=== PATIENT | female | born 1965 | race Caucasian/White ===

== ENCOUNTER → 2017-12-03 16:48 | Outpatient (CLI) | payer BC, SELFPAY ==
[2017-12-03 17:09] LABS: HGB 14.1 g/dL (12.0-15.5)
== END ==
PROVIDERS: PCP Internal Medicine; Visit Provider Obstetrics & Gynecology
DX: N95.0 Postmenopausal bleeding (principal); Z01.812 Encounter for preprocedural laboratory examination
CPT/HCPCS: 36415; 86850; 86900; 86901; 85014; 85018

== ENCOUNTER 2018-04-25 12:49 | Outpatient (CLI) | payer BC, SELFPAY ==
--- NOTE | 2018-04-25 13:00 | DI.RAD_ITS ---
SYMPTOM/DIAGNOSIS: COUGH, ABNL CXR, CHEST RIGHTNESS R05, R93.89, CP R07.89 PA AND LATERAL CHEST: The heart is normal in size. The lungs are clear. The mediastinal structures and pleura appear intact. CONCLUSION: Normal chest.
== END 2018-04-25 13:09 ==
PROVIDERS: PCP Internal Medicine; Visit Provider Nurse Practitioner Adult Health
DX: R05 Cough (principal); R07.89 Other chest pain; R93.89 Abnormal findings on diagnostic imaging of other specified body structures
CPT/HCPCS: 71046

== ENCOUNTER 2018-08-12 00:17 | Outpatient (CLI) | payer BC, SELFPAY ==
--- NOTE | 2018-08-12 11:51 | DI.MAMMO_ITS ---
SYMPTOMS/DIAGNOSIS: SCREENING, Z12.31 MAMMOGRAMS: Mammograms were interpreted according to the usual protocol including computer analysis with CAD system, tomosynthesis and C view imaging. The breast tissue is heterogeneously radiodense, which somewhat limits the sensitivity of the examination. There is no dominant mass. There are no suspicious calcifications and there has been no significant interval change when compared with prior images. SUMMARY: No evidence of malignancy, category 1. Yearly screening mammography is recommended. Breast density category C. SA ASSESSMENT OF FINDINGS: Negative. Category 1. Patient will receive a letter notifying them of these results. Bi-RADS category C. The breasts are heterogeneously dense, which may obscure small masses.
== END 2018-08-12 00:37 ==
PROVIDERS: PCP Internal Medicine; Visit Provider Nurse Practitioner Family
DX: Z12.31 Encounter for screening mammogram for malignant neoplasm of breast (principal)
CPT/HCPCS: 77063; 77067

== ENCOUNTER 2019-07-06 11:30 | Outpatient (REF) | payer BC, SELFPAY ==
--- NOTE | 2019-07-06 10:00 | PAPFT_PTH ---
PATIENT: Lyric Yao LOC: [facility] U#:[id number] AGE/SX: 54/F ROOM: RE07/06/[address]: KAN Cuevas : 1965 BED: DIS: 07/06/2019 SPEC #: [id number] RECD: 07/06/19 12:51 STATUS: JENNIFER REQ #: [id number] RILEY: 07/06/19 10:[address]: Latonya Romero DEPT: [facility] Cytology RECD BY: Poonam Rm ENTERED: 07/06/19 12:51 SP TYPE: PAPFT OTHR DR: Marcia Christopher MD Tissues: 1 - CX/ENDOCX FOR PAP SMEARS Procedures: PAP THIN PREP/UVM Screening HPV DNA PROBE Comments: [id number]
== END 2019-07-06 11:50 ==
LOC: LBN 11:30
PROVIDERS: PCP Internal Medicine; Visit Provider Nurse Practitioner Family
DX: Z12.4 Encounter for screening for malignant neoplasm of cervix (principal); Z11.51 Encounter for screening for human papillomavirus (HPV)
CPT/HCPCS: 88142; 87624

== ENCOUNTER 2020-07-04 14:38 | Outpatient (CLI) | payer BC, SELFPAY ==
--- NOTE | 2020-07-04 14:30 | RT.EKG_ITS ---
APPROVED REPORT Exam: Resting ECG Patient Location: O HR:75 bpm ECG Measurements Heart Rate 75 AXIS LA 144 P 39 QRSd 84 QRS 15 QT 369 T 36 QTc 414 Conclusion Sinus rhythm...normal P axis, V-rate 60- 99 Probable left atrial enlargement...P >50mS, <-0.10mV V1
== END 2020-07-04 14:39 | disposition home or self-care (01) ==
LOC: DI.KIM 14:38
PROVIDERS: PCP Internal Medicine; Visit Provider Nurse Practitioner
DX: R12 Heartburn (principal); R14.2 Eructation
CPT/HCPCS: 93010

== ENCOUNTER 2020-07-11 00:40 | Outpatient (CLI) | payer BC, SELFPAY ==
--- NOTE | 2020-07-11 06:30 | DI.US_ITS ---
EXAM: US ABDOMEN CLINICAL HISTORY: ruq pain after eating ice cream,BELCHING,LOOSE STOOLS,R10.11,R14.2 TECHNIQUE: Ultrasound of complete upper abdomen performed using standard protocol. COMPARISON: US PELVIS TRANSVAG from 10/25/2017 FINDINGS: There is no ascites evident. LIVER: There are no hepatic lesions evident nor obvious dilatation of intrahepatic ducts. GALLBLADDER/BILIARY: Gallbladder is contracted and contains multiple echogenic calculi. The common hepatic duct isnot dilated, measuring 2-3mm at the level of calin hepatis. PANCREAS: There is no evidence of pancreatic mass nor dilatation of the pancreatic duct. SPLEEN: The spleen is not enlarged and there are no intrasplenic lesions evident. KIDNEYS:Kidneys exhibit normal size with no evidence of solid mass, calculus, nor hydronephrosis. No cortical cysts evident. ABDOMINAL AORTA: There is no evidence of abdominal aortic aneurysm. IVC: Normal diameter where visualized. IMPRESSION: 1. Cholelithiasis. Multiple gallstones fill the gallbladder lumen in the gallbladder appears contra cted. Gallbladder wall is slightly thickened. Common hepatic duct is not dilated 2. No other significant ultrasound findings in the upper abdomen. 3. There is no ascites. DATA REPOSITORY:
== END 2020-07-11 01:00 ==
PROVIDERS: PCP Internal Medicine; Visit Provider Nurse Practitioner
DX: K80.20 Calculus of gallbladder without cholecystitis without obstruction (principal); R14.2 Eructation; R19.5 Other fecal abnormalities
CPT/HCPCS: 76700

== ENCOUNTER 2020-07-20 01:23 | Outpatient (CLI) | payer BC, SELFPAY ==
--- NOTE | 2020-07-20 08:00 | DI.MAMMO_ITS ---
EXAM: MAMMO SCREENING CLINICAL HISTORY: screening,Z12.39. TECHNIQUE: Bilateral full field digital CC and MLO mammographic images were obtained with 3D tomosyn thesis and utilizing computer aided detection (CAD). COMPARISON: Prior mammograms dating back to 2013, the most recent being July 2018. FINDINGS: Fibroglandular tissue is again noted be moderately dense, this decreasing the sensitivity of the mamm ogram for finding hidden underlying lesions. There are no new obvious spiculated masses nor malignant appearing microcalcification groups. There is no significant architectural distortion nor skin thickening-retraction. IMPRESSION: Dense bilateral fibroglandular tissue. No obvious radiographic evidence of malignancy nor significan t change compared to prior studies listed above. BI-RADS Category 1 - Negative Breast Density - Category C - Heterogeneously dense Breast density Category C or D implies that the patient has dense breast tissue. Dense breast tissue can make it harder to find cancer on a mammogram. Dense breast tissue is also associated with an incr eased risk of breast cancer. This information about the result of the mammogram report was provided to the patient to raise their awareness. Use this report when you speak with the patient about their risks for breast cancer, which includes their family history. At that time, you may recommend additional screening tests (Ultrasoun d or MRI) as these tests may add significant information. A negative radiographic report should not delay biopsy if a dominant or clinically suspicious mass is present. Up to ten percent of cancers are not identified on mammography. A negative report may reinforce clinical impression. Adenosis and dense breasts may obscure an underlying neoplasm. False positive reports average 6 to 10%. Patient will receive a letter notifying them of these results.
== END 2020-07-20 01:43 ==
PROVIDERS: PCP Internal Medicine; Visit Provider Nurse Practitioner Family
DX: Z12.31 Encounter for screening mammogram for malignant neoplasm of breast (principal)
CPT/HCPCS: 77063; 77067

== ENCOUNTER 2020-07-25 03:24 | Outpatient (CLI) | payer BC, SELFPAY ==
[2020-07-25 10:18] LABS: Source Nasal/Nares
[2020-07-25 13:59] LABS: COVID-19 PCR Negative (Negative)
== END 2020-07-25 03:25 | disposition home or self-care (01) ==
LOC: LBO 03:24
PROVIDERS: PCP Internal Medicine; Visit Provider Surgery
DX: Z20.822 Contact with and (suspected) exposure to COVID-19 (principal)
CPT/HCPCS: 87635

== ENCOUNTER 2020-07-27 07:48 | Day surgery (SDC) | payer BC, SELFPAY ==
--- NOTE | 2020-07-27 06:37 | ROE_ITS ---
Date of service: 07/27/20 Time of Service: 11:30 Operative Note Operative Note DATE OF PROCEDURE: 07/27/20 PRE-OP DIAGNOSIS: Biliary Cholic POST-OP DIAGNOSIS: same PROCEDURE: Laparoscopic Cholecystectomy SURGEON: Dayami Dumont PHOTOGRAPHER APPRENTICE: Marichuy Nair ANESTHESIA TYPE: General LMA/ETT (ASA 2/ Agnes Lopez CRNA) Refer to Anesthesia Record ESTIMATED BLOOD LOSS: 50 PATHOLOGY: other (Gallbladder and contents) COMPLICATIONS: None Patient was transported to: PACU Patient's condition: stable Indications: Mrs Yao is a pleasant 55-year-old female who has biliary colic. Ultrasound showed multiple stones as well as slight thickening of the gallbladder wall. It also sounds like she has got some heartburn for which she is now taking omeprazole 40 mg daily. 30 minutes were spent reviewing surgery using a pamphlet with pictures. We reviewed the anatomy as well as the pathology. We went over risks benefits and complications. Patient wishes to proceed with laparoscopic cholecystectomy. Risks, benefits, complications were reviewed with the patient in the office. Complications include but are not limited to bleeding, infection, injury to stomach, small bowel and large bowel, injury to the pancreas, injury to the common bile duct necessitating drainage and referral to tertiary center for repair, bile leak, adverse reactions to the medications, complications of intubation including a sore throat or injury to the uvula, [place], stroke and even . Questions were entertained and answered to her satisfaction and she wished to proceed. No guarantees were given or implied. COVID-19 testing explained to the patient. Reason for test reviewed. Quarantine per state requirements reviewed with patient. Patient understands and agrees to testing. Proceed with laparoscopic cholecystectomy, possible cholangiogram, possible open Findings: dilated Gallbladder with stones an minimal adhesions Procedure Description: After informed consent was obtained the patient was taken to the PACU and anesthesia performed a erector spine block for postoperative comfort. Once the block was in place the patient was brought to the operating room, placed in a supine position and monitors were applied. SCDs were applied to her lower extremities and she was placed under general anesthesia and intubated without difficulty. Her abdomen was then prepped and draped in a sterile fashion using ChloraPrep. At this point a timeout was done and the patient's name, date of , procedure type, allergies to medications, metal in her body, antibiotic and DVT prophylaxis, and fire risk was assessed. At this point half percent Marcaine with epi was injected just above the umbilicus into the dermis and subcutaneous tissue. A 5 mm incision was made with an 11 blade. The skin next to the incision was grasped with penetrating towel clamps and while pulling up on the skin a 5 mm port was placed under direct visualization. The abdomen was insuflated and then 3 more ports were placed. A 12 mm port was placed in the subxiphoid area and two 5 mm ports were placed in the right upper quadrant. The liver was inspected and was normal. The patient's bed was then turned to the left and her head was brought up. The gallbladder was grasped at the body and pushed towards the right shoulder, this allowed me to visualize the neck of the gallbladder. The neck was grasped and pulled towards the right flank and down allowing me to visualize the lymph node. Using a [place] dissector with cautery the lymph node was gently dissected away from the tissues and the fatty tissue was also dissected away. The cystic duct was identified it was normal in size. The duct was dissected 360 degrees using the [place] dissector in order for me to visualize its entrance into the gallbladder. Liver was noted behind it. There were no other structures right behind. Critical view was achieved. 3 clips were placed one proximal and 2 distal and the cystic duct was cut. The cystic artery was then identified and dissected 360 degrees. It was located just medial to the cystic duct. It was visualized going into the gallbladder. Once dissected 3 more clips were placed one proximal and 2 distal and the artery was cut. Using the hook dissector the gallbladder was then dissected away from the liver bed and placed into an Endo Catch bag and pulled through the 12 mm port site. The 12 mm port was placed back into the abdomen under direct visualization. The liver bed was inspected no bleeding was noted. At this point the rest of the local anesthetic mixture was injected above the liver to help with postoperative right shoulder pain. The 12 mm and the 2 right upper quadrant ports were removed under direct visualization and no bleeding was noted from the fascia. The abdomen was deflated completely and lastly the umbilical port was removed. The skin was cleaned. The fascia of the 12 mm incision was closed with 0 vicryl figure of eight suture. The dermis of all 4 incisions was the closed with a subcuticular running stitch with 4-0 Vicryl. The skin was dried. Mastasol and steristrips were applied to all 4 incisions and covered with 2x2 and secured with tegaderms. Needle and sponge counts were correct at the end of the case. At this point the patient was woken up, extubated and taken back to recovery in stable condition. There were no immediate complications.
--- NOTE | 2020-07-27 06:39 | PDOC.DSDIS_ITS ---
Discharge Plan Disposition Patient Disposition: HOME Condition: Good Discharge Details Reason For Visit: Biliary Cholic Attending Provider: Dayami Dumont Primary Care Provider: Marcia Christopher Home Meds and New Rx's Prescriptions: New oxycodone 5 mg tablet 5 mg PO Q6H PRNQty: 14 RF: 0 Continued omeprazole 40 mg capsule,delayed release(DR/EC) 40 mg PO DAILY Qty: 90 RF: 0 Refresh Classic (PF) 1 EACH dropperette 1 ea Ophthalmic DAILY RF: 0 Refresh Lacri-Lube 3.5 GM ointment 3.5 gm Ophthalmic HS RF: 0 multivitamin [Daily Multiple] 1 EACH tablet 1 ea PO DAILY RF: 0 Discharge Instructions Instructions: Laparoscopic Cholecystectomy (DC) Additional Instructions: Activity at Home after surgery: 1. Make sure you walk outside at least 4 times per day 2. You should be able to climb a flight of stairs 3. No driving while in pain or taking pain medications 4. No strenuous activity or heavy lifting for 2 weeks (laparoscopic surgery) or 4 weeks (open surgery) Diet, Nutrition, & wound healin. Avoid alcohol until after you are recovered from your surgery 2. Make sure to eat plenty of lean protein (meat, fish, eggs, cottage cheese, beans) 3. Eat a variety of fruits and vegetables. Eat plenty of high fiber foods to avoid constipation. 4. Drink plenty of liquids to stay hydrated and avoid constipation Pain Medications: 1. Tylenol 650mg every 6 hours as needed and Ibuprofen 600 mg every 6 hours as needed. You may alternate between the 2 medications every 3 hours 2. If a narcotic has been prescribed take as directed only for br eakthrough pain For Constipation: 1. Take Milk of Magnesia or MiraLax as needed for constipation Other: 1. You may shower daily. Do not scrub the incisions 2. Do not soak the incisions for 1 week 3. You may alternate ice and heat as needed for pain and swelling Wound Care: 1. Keep the incisions clean and dry Please call our office if you develop: 1. Fevers >101.5 2. Nausea or Vomiting 3. Worsening pain 4. Redness and thick discharge from the wounds If after hours please call the Hospital at and ask to speak to the on-call surgeon Referrals: Marichuy Nair PA [[employer]] - 08/11/20 10:30 am Activity:: No lifting >20 lb x 2 weeks Shower/Bathe:: 24 hours Diet:: low fat for 2 weeks Discharge Orders Discharge Orders: Discharge Order (Routine); Ordered 07/27/20 Ordered By: Dayami Dumont
[2020-07-27 08:03] VITALS: BP 125/74; PULSE 88; RESP 16; TEMP 36.4; O2SAT 97
[2020-07-27] MEDS: Lactated Ringers 1,000 ML 80 ML IV (08:22)
[2020-07-27] MEDS: AMPICILLIN/SULBACTAM 3 GM in Normal Saline 100 ML IVPB (11:25)
[2020-07-27] MEDS: Lidocaine 1% Multi-Dose 50 ML VIAL (11:28)
--- NOTE | 2020-07-27 11:50 | GB_PTH ---
PATIENT: Lyric Yao LOC: [facility] U#:[id number] AGE/SX: 55/F ROOM: RE07/27/[address]: Dayami Dumont MD : 1965 BED: DIS: 07/27/2020 SPEC #: [id number] RECD: 07/27/20 12:53 STATUS: JENNIFER RE #: [id number] RILEY: 07/27/20 11:[address]: Dayami Dumont DEPT: Surgical Specimen RECD BY: Poonam Rm ENTERED: 07/27/20 12:54 SP TYPE: GB OTHR DR: Marcia Christopher MD Tissues: 1 - GALLBLADDER Procedures: GROSS AND MICRO LEVEL 3 Comments: [id number]
[2020-07-27 12:15] VITALS: BP 138/89; PULSE 79; RESP 15; TEMP 36.2; O2SAT 97
[2020-07-27 12:20] VITALS: BP 143/76; PULSE 87; RESP 15; TEMP 36.2; O2SAT 96
[2020-07-27 12:25] VITALS: BP 136/76; PULSE 78; RESP 16; TEMP 36.2; O2SAT 96
[2020-07-27 12:40] VITALS: BP 128/78; PULSE 73; RESP 16; TEMP 36.2; O2SAT 97
[2020-07-27 13:35] VITALS: BP 112/73; PULSE 74; RESP 18; TEMP 36.4; O2SAT 94
== END 2020-07-27 14:18 | disposition home or self-care (01) ==
LOC: SUR 07:48
PROVIDERS: PCP Internal Medicine; Visit Provider Surgery
PROC: 0FT44ZZ Resection of Gallbladder, Percutaneous Endoscopic Approach (ICD-10-PCS; CPT 47562; principal; 2020-07-27 09:30)
DX: K80.10 Calculus of gallbladder with chronic cholecystitis without obstruction (principal)
CPT/HCPCS: 47562; 88304; J0295; J1100; J1885; J2001; J2405; J2704; J3010

== ENCOUNTER 2021-04-18 09:09 | Emergency (ER) | payer BC, SELFPAY ==
[2021-04-18] VITALS (38 sets, daily range): BP systolic 121–145; BP diastolic 75–86; PULSE 85–105; RESP 16–28; TEMP 36.7–37.7; O2SAT 91–94
--- NOTE | 2021-04-18 09:15 | RT.EKG_ITS ---
APPROVED REPORT Exam: Resting ECG Reason for Exam: sob Patient Location: E HR:90 bpm ECG Measurements Heart Rate 90 AXIS CA 135 P 32 QRSd 75 QRS 13 QT 352 T 25 QTc 432 Conclusion Sinus rhythm...normal P axis, V-rate 60- 99 Probable left atrial enlargement...P >50mS, <-0.10mV V1
--- NOTE | 2021-04-18 09:43 | W.ED.GENAD ---
Discharge Plan Disposition Patient Disposition: HOME Condition: Improving Discharge Details Clinical Impression: COVID-19 Primary Care Provider: Marcia Christopher ED Provider: Sunil Elias Home Meds and New Rx's Prescriptions: New ondansetron HCl [Zofran] 4 mg tablet 4 mg PO Q8H PRNQty: 10 RF: 0 Continued Systane Complete 0.6 % drops 1 drp ophthalmic (eye) DAILY PRNRF: 0 Refresh Lacri-Lube 3.5 GM ointment 3.5 gm Ophthalmic HS RF: 0 multivitamin [Daily Multiple] 1 EACH tablet 1 ea PO DAILY RF: 0 Discharge Instructions Instructions: COVID-19 (Coronavirus Disease 2019) (ED) Additional Instructions: Zofran as directed. [id number] medications as directed for symptomatic control. Plenty of fluids to avoid dehydration. As we discussed you should be quarantining for at least 10 days from the onset of your symptoms. Today you received dexamethasone and the monoclonal antibody therapy. I am sending you home with a pulse oximeter, please be sure to check your oxygen level and if it is consistently below 90 and please return immediately to the ER. Otherwise contact your primary care provider to discuss your ongoing symptoms and need for outpatient reevaluation. Medical Decision Making This is a 56-year-old female, denies significant past medical history, presenting to the ER for evaluation having tested positive for Covid 6 days ago, reporting body aches, headache, fever, dry cough, nausea, vomiting, concerns for dehydration. She is not Covid vaccinated. Clinically she appears dry, mild tachycardia present upon triage as well as a fever. Plan is to obtain a Covid work-up. We discussed treatment therapy, obtain IV access, give IV fluid, IV Tylenol, Toradol, Zofran. Will give dexamethasone. After discussing monoclonal antibody therapy, verbal consent obtained, and will move forward with monoclonal antibody therapy. Patient is not requiring any supplemental oxygen and I do not suspect that she will need hospitalization. O2 sats are 93-94% on room air. Laboratory values reveal a white blood cell count of 3.01, no evidence of anemia. Platelet count appropriate at 139, D-dimer slightly elevated at 704, will perform CTA of the chest. Lactate 1.0 potassium 3.2, will give 40 p.o. potassium. Anion gap appropriate 10.2. Troponin 0.8 with a GFR greater than 60. Glucose 110 ferritin 779 lactate dehydrogenase 253, troponin less than 50 CRP 124. Procalcitonin less than 0.1. Upon reevaluation patient reports significant improvement of symptoms with medication. No longer febrile, heart rate now in the low 90s. No evidence of tachypnea or hypoxemia. We had a long discussion regarding Covid and her symptoms. Patient is comfortable discharge. Strict discharge and return precautions provided as well as a pulse oximeter. Patient received her monoclonal antibody infusion and was observed for 1 hour without any symptoms. Patient without additional questions or concerns. CTA negative for PE. Consistent with COVID-19 pneumonia. Clinically I see no clear indication to initiate antibiotic therapy. This documentation was generated using [employer] system, please disregard any oddities of phrase or misspellings. Medical Records Medical records reviewed: Yes I reviewed the patient's medical records. Imaging Data Radiologic Study: Attestation: I personally reviewed and interpreted this imaging study as follows: Imaging: CT Scan Radiologist's impression: Exam(s) CT CHEST PE CTA EXAM: CT CHEST PE CTA CLINICAL HISTORY: sob, elevated dimer, covid +. TECHNIQUE: Imaging Protocol: Axial CT angiography was performed with multi-slice acquisition and multi-planar and/or 3D reconstructions. CONTRAST MATERIAL: Intravenous: Omnipaque 350 Contrast volume:75 mL COMPARISON: No exams were available for comparison FINDINGS: Tracheobronchial tree: Patent where visualized. Pulmonary parenchyma: Multifocal infiltrates are seen which are predominantly ground-glass. There are areas of atelectasis in the lung bases. Pulmonary Arteries: No evidence of filling defect to suggest pulmonary emboli. Mediastinum and Adilene: There are mildly enlarged lymph nodes in the mediastinum which are likely reactive. The esophagus is unremarkable. Visualized thyroid gland: Unremarkable. Pleura: No effusion or pneumothorax. Heart: The heart is not dilated. No coronary artery calcifications are seen. No pericardial effusion. Aorta: Thoracic aorta non-dilated. No evidence of dissection. Upper abdomen: Status post cholecystectomy. Soft tissues: Unremarkable. Bones: Within normal limits for the patient's age. IMPRESSION: 1. No evidence of pulmonary embolism, thoracic aortic dissection or aneurysm. 2. Multifocal infiltrates consistent with pneumonia. Findings would be consistent with a COVID-19 pneumonia. 3. Results of this exam have been verbally communicated with provider. Lab Data Lab results reviewed: Yes I reviewed the patient's lab results. Labs: 04/18/21 10:35 Blood Blood Culture - Pending 04/18/21 10:25 Blood Blood Culture - Pending Laboratory Tests Range/Units 04/18/21 04/18/21 04/18/21 09:35 09:35 09:35 WBC (4.4-10.8) 10^3/uL 3.01 L RBC (3.93-5.22) 10^6/uL 4.95 Hgb (11.2-15.7) g/dL 15.0 Hct (36.0-46.0) % 43.5 MCV (80-95) fL 87.9 MCH (27.0-33.0) pg 30.3 MCHC (32.0-36.0) % 34.5 RDW (11.7-14.6) % 12.1 Plt Count (130-400) 10^3/uL 139 MPV (8.0-11.0) fL 9.6 Immature Gran % 0.3 Neutrophils % 68.5 Lymphocytes % 22.6 Monocytes % 8.3 Eosinophils % 0.0 Basophils % 0.3 Nucleated RBC % % 0 Absolute Neutrophils (1.2-6.7) 10^3/uL 2.06 Absolute Lymphocytes (1.2-3.4) 10^3/uL 0.68 L Absolute Monocytes (0.1-0.8) 10^3/uL 0.25 Absolute Eosinophils (0.0-0.7) 10^3/uL 0.00 Absolute Basophils (0.0-0.2) 10^3/uL 0.01 D-Dimer (<500) ng/mlFEU VBG Lactate (0.6-1.4) mmol/L 1.0 Sodium (136-145) mmol/L 137 Potassium (3.5-5.1) mmol/L 3.2 L Chloride (98-107) mmol/L 102 Carbon Dioxide (21.0-32.0) mmol/L 24.8 Anion Gap (3-11) mmol/L 10.2 BUN (7-18) mg/dL 12 Creatinine (0.55-1.02) mg/dL 0.8 Estimated GFR/1.73 m2 (mL/min/1.73m2) >= 60.00 Glucose (74-106) mg/dL 110 H Calcium (8.5-10.1) mg/dL 8.7 Ferritin (8-252) ng/mL 779 H Total Bilirubin (0.2-1.0) mg/dL 0.5 AST (15-37) U/L 50 H ALT (14-59) U/L 88 H Alkaline Phosphatase (46-116) U/L 95 Lactate Dehydrogenase (81-234) U/L 253 H Troponin I (<or=60) ng/L < 50 C-Reactive Protein (0.0-0.3) mg/dL 1.24 H Total Protein (6.4-8.2) g/dL 7.8 Albumin (3.4-5.0) g/dL 3.7 Procalcitonin ng/mL < 0.1 Range/Units 04/18/21 09:35 WBC (4.4-10.8) 10^3/uL RBC (3.93-5.22) 10^6/uL Hgb (11.2-15.7) g/dL Hct (36.0-46.0) % MCV (80-95) fL MCH (27.0-33.0) pg MCHC (32.0-36.0) % RDW (11.7-14.6) % Plt Count (130-400) 10^3/uL MPV (8.0-11.0) fL Immature Gran % Neutrophils % Lymphocytes % Monocytes % Eosinophils % Basophils % Nucleated RBC % % Absolute Neutrophils (1.2-6.7) 10^3/uL Absolute Lymphocytes (1.2-3.4) 10^3/uL Absolute Monocytes (0.1-0.8) 10^3/uL Absolute Eosinophils (0.0-0.7) 10^3/uL Absolute Basophils (0.0-0.2) 10^3/uL D-Dimer (<500) ng/mlFEU 704 H VBG Lactate (0.6-1.4) mmol/L Sodium (136-145) mmol/L Potassium (3.5-5.1) mmol/L Chloride (98-107) mmol/L Carbon Dioxide (21.0-32.0) mmol/L Anion Gap (3-11) mmol/L BUN (7-18) mg/dL Creatinine (0.55-1.02) mg/dL Estimated GFR/1.73 m2 (mL/min/1.73m2) Glucose (74-106) mg/dL Calcium (8.5-10.1) mg/dL Ferritin (8-252) ng/mL Total Bilirubin (0.2-1.0) mg/dL AST (15-37) U/L ALT (14-59) U/L Alkaline Phosphatase (46-116) U/L Lactate Dehydrogenase (81-234) U/L Troponin I (<or=60) ng/L C-Reactive Protein (0.0-0.3) mg/dL Total Protein (6.4-8.2) g/dL Albumin (3.4-5.0) g/dL Procalcitonin ng/mL ECG Data Attestation: I personally reviewed and interpreted this ECG (s) as follows: Interpretation: Please see official report by Dr. Bishop. Sinus rhythm, ventricular rate of 90. No STEMI. HPI General Mode of arrival: ambulatory. Date/Time Provider Initiated Documentation: 04/18/21 09:10. Limitations to Documentation: no limitations. Information obtained by: patient. HPI Narrative: This is a 56-year-old female, denies significant past medical history, presenting to the ER for evaluation having tested positive for Covid 6 days ago when her symptoms began, not really improving, headache, body aches, sore throat, dry cough, subjective fever, nausea, decreased appetite, concern for dehydration. Patient does not vaccinated for Covid. She is a smoker. She has not taken any tbqg-llg-dvrznof medications for her symptoms. She denies any chest pain, diarrhea, constipation, pain or swelling in her legs. She denies shortness of breath at rest but reports that she feels short of breath with a coughing fit. Reports body aches and headache are both moderate to severe. Denies any visual changes or neck pain. Related Data Home Medications Medication Instructions Recorded Confirmed Refresh Lacri-Lube 3.5 gm OPHTHALMIC HS 06/26/16 04/18/21 multivitamin [Daily Multiple] 1 ea PO DAILY 06/28/17 04/18/21 propylene glycol 0.6 % eye drops 1 drp OPHTHALMIC (EYE) DAILY PRN 03/29/21 04/18/21 ondansetron HCl [Zofran] 4 mg PO Q8H PRN #10 tab 04/18/21 Previous Rx's Medication Instructions Recorded ondansetron HCl [Zofran] 4 mg PO Q8H PRN #10 tab 04/18/21 Allergies Allergy/AdvReac Type Severity Reaction Status Date / Time cyclobenzaprine AdvReac Mild Dizziness/L Verified 04/18/21 09:24 ightheade General Stated Complaint: [facility] OCTAVIANO: 3 Review of Systems Constitutional Constitutional: Reports fatigue, Reports fever(s) and Reports headache(s) Eyes Eyes: Denies change in vision ENT Ears, Nose, Mouth, and Throat: Reports headache(s), Denies neck pain and Reports sore throat Cardiovascular Cardiovascular: Denies chest pain and Reports dyspnea Respiratory Respiratory: Reports cough and Reports dyspnea Gastrointestinal Gastrointestinal: Denies abdominal pain, Denies constipation, Denies diarrhea, Reports nausea and Reports vomiting Genitourinary Genitourinary: Denies dysuria Musculoskeletal Musculoskeletal: Denies back pain, Reports myalgias and Denies neck pain Integumentary/Breasts Skin/Breast: Denies rash Neurologic Neurologic: Reports headache(s) Endocrine Endocrine: Reports fatigue PFSH All Active Problems (Updated 04/18/21 @ 10:47 by KARIN Funes) COVID-19 (Acute) Loose stools (Acute) Pure hypercholesterolemia (Acute 06/08/15) Medical History Heart burn Laryngopharyngeal reflux (LPR) Devon Norton PA-C Metatarsalgia of both feet Postnasal drip Retinoschisis 05/26/20 [facility] [place] Opthalmology Tonsillith Surgical History section Dilation and curettage (12/04/17) Family History Mother No problems noted. Father , [place] at age 74. Heart disease Sister No problems noted. Sister No problems noted. Sister No problems noted. Sister No problems noted. Brother No problems noted. Social History Smoking/Tobacco Use Status: Never Smoking risk assessment performed?: Yes Alcohol Intake: current Alcohol Intake frequency: a few times a week Alcohol type: beer Drug use: Never Substance use type: does not use Household members: spouse Housing: house Number of Children: 1 Communication Needs: Corrective Lenses Pets and animals: Yes Pets and animals: dog(s) Current gender identity: female What is your relationship status?: Panel score (0-1 are the most socially isolated patients): 1 Seatbelt use: always Water heater temp set <120 deg: Yes Working smoke detector in home: Yes Fire extinguisher in home: Yes Carbon monox detector in home: Yes Firearms in home: Yes Firearms unloaded and locked: Yes Do you feel safe at home: Yes Do you feel safe in your relationship?: Yes Victim of physical abuse: No Victim of emotional abuse: No Victim of sexual abuse: No Female Reproductive History Menstrual Menopause type: natural History History 0 Para 0 Hx # Term Pregnancies Multiple births Hx # Pregnancies Ectopic pregnancies AB induced Hx Number of Living Children AB spontaneous Exam Const General: cooperative, healthy appearing, comfortable and no acute distress Orientation: alert, awake and oriented x3 HENMT Head: normal to inspection, normocephalic and atraumatic Face and sinus: normal facial exam Mouth: moist mucous membranes abnormal (dry) Throat: posterior oropharynx normal Eyes General: appearance normal, both eyes and all related structures Conjunctivae: conjunctivae normal Neck Neck: normal visual inspection, full ROM, no lymphadenopathy, no meningeal signs, trachea midline, supple and nontender Resp Effort & Inspection: normal respiratory effort, able to speak in complete sentences and cough Quality of cough: dry Auscultation: diminished lung sounds bilaterally in the lower lung siegel Cardio Rate: regular rate Rhythm: regular rhythm GI Palpation: soft and nontender Back/Spine/Pelvis Back: No back tenderness Skin General skin exam: no rashes or lesions noted Neuro General: patient alert, patient awake, moves all extremities and no focal motor deficits Cognition: normal cognition Speech: speech normal Gait: normal gait Motor: muscle tone normal throughout Sensory Exam: no sensory deficits noted Extrem General: normal to inspection, full ROM, capillary refill normal, no pedal edema and no calf tenderness Psych Appearance: grossly normal Mental Status: mental status grossly normal Course Vital Signs Vital signs: Vital Signs Temperature 37.7 C H 04/18/21 09:20 Pulse 105 H 04/18/21 09:20 Respiratory Rate 23 04/18/21 09:20 Blood Pressure 145/86 H 04/18/21 09:20 Pulse Oximetry 93 04/18/21 09:20 Temperature 37.7 C H 04/18/21 09:20 Temperature Source Oral 04/18/21 09:20 Pulse 105 H 04/18/21 09:20 Respiratory Rate 23 04/18/21 09:20 Respiratory Effort 04/18/21 09:20 Blood Pressure 145/86 H 04/18/21 09:20 Blood Pressure Position Supine 04/18/21 09:20 Pulse Oximetry 93 04/18/21 09:20 Oxygen Delivery Method Room Air 04/18/21 09:20 Oxygen Flow Rate 0 04/18/21 09:20 Pain Level 9 04/18/21 09:20 Lab/Test Results Lab/Test Results: 04/18/21 09:38 Blood Blood Culture - Pending 04/18/21 09:38 Blood Blood Culture - Pending
[2021-04-18 09:53] LABS: Abs Immature Grans 0.01 10^3/uL (0.0-0.06); Absolute Basophil Count 0.01 10^3/uL (0.0-0.2); Absolute Lymphocyte Count 0.68 10^3/uL (1.2-3.4); Absolute Monocyte Count 0.25 10^3/uL (0.1-0.8); Absolute Neutrophil Count 2.06 10^3/uL (1.2-6.7); Basophils % 0.3; HCT 43.5 % (36.0-46.0); Immature Grans % 0.3; Lymphocytes % 22.6; MCH 30.3 pg (27.0-33.0); MCHC 34.5 % (32.0-36.0); MCV 87.9 fL (80-95); MPV 9.6 fL (8.0-11.0); Monocytes % 8.3; Neutrophils % 68.5; Nucleated RBC 0 %; Platelet Count 139 10^3/uL (130-400); RBC 4.95 10^6/uL (3.93-5.22); RDW 12.1 % (11.7-14.6); RDW-SD 39.2 fL; WBC 3.01 10^3/uL (4.4-10.8)
[2021-04-18 10:17] LABS: ALT 88 U/L (14-59); AST 50 U/L (15-37); Albumin 3.7 g/dL (3.4-5.0); Alkaline Phosphatase 95 U/L (46-116); Anion Gap 10.2 mmol/L (3-11); BUN 12 mg/dL (7-18); Bilirubin, Total 0.5 mg/dL (0.2-1.0); C-Reactive Protein 1.24 mg/dL (0.0-0.3); CO2 24.8 mmol/L (21.0-32.0); CREATININE 0.8 mg/dL (0.55-1.02); Calcium 8.7 mg/dL (8.5-10.1); Chloride 102 mmol/L (98-107); Glucose 110 mg/dL (74-106); LDH 253 U/L (81-234); Potassium 3.2 mmol/L (3.5-5.1); Sodium 137 mmol/L (136-145); Total Protein 7.8 g/dL (6.4-8.2); Troponin I < 50 ng/L (<or=60)
[2021-04-18] MEDS: ACETAMINOPHEN 1,000 MG/100 ML BTL 400 MG IVPB (10:26)
[2021-04-18] MEDS: Ketorolac 30 MG/ML VIAL IVP (10:26)
[2021-04-18] MEDS: Ondansetron 4 MG/2 ML VIAL IVP (10:26)
[2021-04-18] MEDS: Normal Saline 1,000 ML 125 ML IV (10:27)
[2021-04-18 10:28] LABS: D-Dimer 704 ng/mlFEU (<500)
--- NOTE | 2021-04-18 10:30 | DI.CT_ITS ---
Exam(s) CT CHEST PE CTA EXAM: CT CHEST PE CTA CLINICAL HISTORY: sob, elevated dimer, covid +. TECHNIQUE: Imaging Protocol: Axial CT angiography was performed with multi-slice acquisition and mu lti-planar and/or 3D reconstructions. CONTRAST MATERIAL: Intravenous: Omnipaque 350 Contrast volume:75 mL COMPARISON: No exams were available for comparison FINDINGS: Tracheobronchial tree: Patent where visualized. Pulmonary parenchyma: Multifocal infiltrates are seen which are predominantly ground-glass. There ar e areas of atelectasis in the lung bases. Pulmonary Arteries: No evidence of filling defect to suggest pulmonary emboli. Mediastinum and Adilene: There are mildly enlarged lymph nodes in the mediastinum which are likely react melanie. The esophagus is unremarkable. Visualized thyroid gland: Unremarkable. Pleura: No effusion or pneumothorax. Heart: The heart is not dilated. No coronary artery calcifications are seen. No pericardial effusion. Aorta: Thoracic aorta non-dilated. No evidence of dissection. Upper abdomen: Status post cholecystectomy. Soft tissues: Unremarkable. Bones: Within normal limits for the patient's age. IMPRESSION: 1. No evidence of pulmonary embolism, thoracic aortic dissection or aneurysm. 2. Multifocal infiltrates consistent with pneumonia. Findings would be consistent with a COVID-19 pne umonia. 3. Results of this exam have been verbally communicated with provider. RADIATION DOSE DELIVERED: 460.74mGy.cm Total DLP DATA REPOSITORY: All CT scans at this facility are submitted to the National Radiology Data Registry (NRDR) Dose Index Registry (DIR) with the [employer] (ACR). RADIATION OPTIMIZATION: All CT scans at this facility use at least one of these dose optimization te chniques: automated exposure control; mA and/or kV adjustment per patient size (includes targeted exa ms where dose is matched to clinical indication); or iterative reconstruction.
[2021-04-18 10:34] LABS: Procalcitonin < 0.1 ng/mL
[2021-04-18 10:47] LABS: Ferritin 779 ng/mL (8-252)
[2021-04-18] MEDS: Dexamethasone 4 MG/ML VIAL IVP (10:52)
[2021-04-18] MEDS: Omnipaque 350 MG/ML 100 ML BTL IJ (11:34)
== END 2021-04-18 13:18 | disposition home or self-care (01) ==
PROVIDERS: Emergency Provider Physician Assistant; PCP Internal Medicine
DX: U07.1 COVID-19 (principal); R11.2 Nausea with vomiting, unspecified; R50.9 Fever, unspecified; R51.9 Headache, unspecified
CPT/HCPCS: 36410; 36415; 71275; 80053; 84145; 87040; 93005; 96361; 96365; 96375; 99285; 82728; 83605; 83615; 84484; 85025; 85379; 86140; 93010; 99284; J0131; J1100; J1885; J2405; J3490

== ENCOUNTER 2021-07-31 04:18 | Outpatient (CLI) | payer BC, SELFPAY ==
[2021-07-31 09:30] LABS: ALT 49 U/L (14-59); AST 27 U/L (15-37); Alkaline Phosphatase 99 U/L (46-116); Anion Gap 9.1 mmol/L (3-11); BUN 9 mg/dL (7-18); Bilirubin, Total 0.6 mg/dL (0.2-1.0); CO2 29.9 mmol/L (21.0-32.0); CREATININE 0.8 mg/dL (0.55-1.02); Calcium 8.9 mg/dL (8.5-10.1); Calculated LDL 133 mg/dL (<100); Chloride 104 mmol/L (98-107); Cholesterol 211 mg/dL (<200); Glucose 84 mg/dL (74-106); HDL Cholesterol 55 mg/dL (40-60); Potassium 3.5 mmol/L (3.5-5.1); Sodium 143 mmol/L (136-145); TSH 1.79 uIU/mL (0.36-3.74); Total Protein 7.4 g/dL (6.4-8.2); Triglyceride 119 mg/dL (<150)
== END 2021-07-31 04:19 | disposition home or self-care (01) ==
LOC: LBO 04:18
PROVIDERS: PCP Internal Medicine; Referring Provider Internal Medicine; Visit Provider Internal Medicine
DX: R79.89 Other specified abnormal findings of blood chemistry (principal); Z13.220 Encounter for screening for lipoid disorders; L65.0 Telogen effluvium
CPT/HCPCS: 36415; 80053; 80061; 84443

== ENCOUNTER 2021-08-10 14:17 | Outpatient (CLI) | payer BC, SELFPAY ==
--- NOTE | 2021-08-10 14:15 | RT.EKG_ITS ---
APPROVED REPORT Exam: Resting ECG Reason for Exam: dizziness Patient Location: O HR:69 bpm ECG Measurements Heart Rate 69 AXIS DE 147 P 38 QRSd 78 QRS 6 QT 384 T 26 QTc 413 Conclusion Sinus rhythm...normal P axis, V-rate 60- 99 Probable left atrial enlargement...P >50mS, <-0.10mV V1 Otherwise normal
== END 2021-08-10 14:18 | disposition home or self-care (01) ==
LOC: DI.KIM 14:18
PROVIDERS: PCP Internal Medicine; Visit Provider Family Medicine
DX: R42 Dizziness and giddiness (principal)
CPT/HCPCS: 93010

== ENCOUNTER 2021-08-31 01:46 | Outpatient (CLI) | payer BC, SELFPAY ==
--- NOTE | 2021-08-31 08:20 | DI.MAMMO_ITS ---
Exam(s) MAMMO SCREENING EXAM: MAMMO SCREENING CLINICAL HISTORY: screening TECHNIQUE: Mammograms were interpreted according to the usual protocol including computer analysis w [employer] CAD system, tomosynthesis and C-view imaging. COMPARISON: FINDINGS: The breasts are heterogeneously dense. No dominant mass or clumped microcalcification is identified in either breast. The current examination is compared with previous examinations including June and there has been no gross interval change in appearance in comparison with the prior studies. IMPRESSION: No specific evidence of malignancy at this time. Routine screening examinations are suggested at yea rly intervals in this age group according to the ACS ACR guidelines. BI-RADS Category 1 - Negative Breast Density - Category C - Heterogeneously dense
== END 2021-08-31 02:06 ==
PROVIDERS: PCP Internal Medicine; Visit Provider Nurse Practitioner Family
DX: Z12.31 Encounter for screening mammogram for malignant neoplasm of breast (principal)
CPT/HCPCS: 77063; 77067

== ENCOUNTER 2022-07-11 09:35 | Outpatient (REF) | payer BC, SELFPAY ==
--- NOTE | 2022-07-11 08:30 | PAPFT_PTH ---
PATIENT: Lyric Yao LOC: [facility] U#:[id number] AGE/SX: 57/F ROOM: RE07/11/[address]: Saima Bishop NP : 1965 BED: DIS: 07/11/2022 SPEC #: [id number] RECD: 07/11/22 13:07 STATUS: JENNIFER RELulu #: [id number] RILEY: 07/11/22 08:[address]: Saima Bishop NP DEPT: [facility] Cytology RECD BY: Poonam Rm ENTERED: 07/11/22 13:08 SP TYPE: PAPFT OTHR DR: Marcia Christopher MD Tissues: 1 - CX/ENDOCX FOR PAP SMEARS Procedures: PAP THIN PREP/UVM Screening HPV DNA PROBE Comments: [id number]
== END 2022-07-11 09:36 | disposition home or self-care (01) ==
LOC: LBN 09:35
PROVIDERS: PCP Internal Medicine; Visit Provider Nurse Practitioner Women's Health
DX: Z12.4 Encounter for screening for malignant neoplasm of cervix (principal); Z11.51 Encounter for screening for human papillomavirus (HPV)
CPT/HCPCS: 88142; 87624

== ENCOUNTER 2022-09-04 01:14 | Outpatient (CLI) | payer BC, SELFPAY ==
--- NOTE | 2022-09-04 08:00 | DI.MAMMO_ITS ---
Exam(s) MAMMO SCREENING EXAM: MAMMO SCREENING CLINICAL HISTORY: screening. TECHNIQUE: Bilateral full field digital CC and MLO mammographic images were obtained with 3D tomosyn thesis and utilizing computer aided detection (CAD). COMPARISON: Prior mammograms were reviewed. FINDINGS: There has been no significant change in the appearance and distribution of the fibroglandular tissue. On 3D imaging of the left breast there is a 5 x 4 millimeter noncalcified nodule located approximatel y 7 cm in from the nipple which exhibits a notch and is unchanged from prior mammograms and is probab ly benign intramammary lymph node. There are no new spiculated masses nor malignant appearing microcalcification groups. There is no significant architectural distortion nor skin thickening-retraction. IMPRESSION: Stable benign appearing findings. No radiographic evidence of malignancy. BI-RADS Category 2 - Benign Findings Breast Density - Category C - Heterogeneously dense Breast density Category C or D implies that the patient has dense breast tissue. Dense breast tissue can make it harder to find cancer on a mammogram. Dense breast tissue is also associated with an incr eased risk of breast cancer. This information about the result of the mammogram report was provided to the patient to raise their awareness. Use this report when you speak with the patient about their risks for breast cancer, which includes their family history. At that time, you may recommend additional screening tests (Ultrasoun d or MRI) as these tests may add significant information. A negative radiographic report should not delay biopsy if a dominant or clinically suspicious mass is present. Up to ten percent of cancers are not identified on mammography. A negative report may reinforce clinical impression. Adenosis and dense breasts may obscure an underlying neoplasm. False positive reports average 6 to 10%. Patient will receive a letter notifying them of these results.
== END 2022-09-04 01:34 ==
LOC: DI 01:15
PROVIDERS: PCP Family Medicine; Visit Provider Nurse Practitioner Women's Health
DX: Z12.31 Encounter for screening mammogram for malignant neoplasm of breast (principal)
CPT/HCPCS: 77063; 77067

== ENCOUNTER 2024-01-27 16:06 | Outpatient (CLI) | payer OTHER, SELFPAY ==
--- NOTE | 2024-01-27 16:00 | DI.RAD_ITS ---
Exam(s) XR CERVICAL SPINE COMP 4-5V EXAM: XR CERVICAL SPINE COMP 4-5V CLINICAL HISTORY: Neck pain, concussion, S06.0XAA, M54.2, W19.XXXA, r/o fracture s/p fall. TECHNIQUE: 2D digital imaging was performed. Six images were obtained. AP, odontoid, lateral and sierra ateral oblique images were obtained. COMPARISON: MR MRI - CERVICAL SPINE WO CONT from 03/19/2008 FINDINGS: The odontoid is intact. The lateral masses are well aligned. There is normal alignment of the cervi june spine. There are mild degenerative changes seen at the C5-6 level. There are degenerative change s of the facets at C6-C7 and C5-C6. No acute fracture or subluxation is present. No significant neura l foraminal stenosis is present. The cervical thoracic junction is well maintained. The prevertebra l soft tissues are unremarkable. Lung apices are clear. IMPRESSION: No acute fracture or subluxation is identified. DATA REPOSITORY: RADIATION DOSE DELIVERED:
--- NOTE | 2024-01-27 17:16 | DI.VRAD_ITS ---
PROCEDURE INFORMATION: Exam: XR Spine; Cervical Exam date and time: 01/27/2024 4:11 PM Age: 58 years old Clinical indication: Injury or trauma; Fall TECHNIQUE: Imaging protocol: XR of the spine. Exam focused on the cervical spine. Views: 1 view. COMPARISON: CT CHEST PE CTA 04/18/2021 11:35 AM FINDINGS: Bones/joints: Alignment is normal. Mild degenerative disc disease is seen at C3-C4 and C5-C6 most prominently. Mild diffuse facet arthropathy without visualized bony neural foraminal narrowing. No fracture. Soft tissues: Normal. IMPRESSION: No acute findings. Dictated and Authenticated by: Arnel Blount MD. Ordering:SELENE Lara MD
== END 2024-01-27 16:26 ==
LOC: DI 16:07
PROVIDERS: PCP Family Medicine; Visit Provider Nurse Practitioner Adult Health
DX: W19.XXXA Unspecified fall, initial encounter (principal); M54.2 Cervicalgia; S06.0XAA Concussion with loss of consciousness status unknown, initial encounter; X58.XXXA Exposure to other specified factors, initial encounter
CPT/HCPCS: 72050

== ENCOUNTER 2024-08-28 08:20 | Emergency (ER) | payer OTHER, SELFPAY ==
[2024-08-28] VITALS (15 sets, daily range): BP systolic 111–156; BP diastolic 69–85; PULSE 65–84; RESP 13–21; TEMP 36.6; O2SAT 95–100
--- NOTE | 2024-08-28 08:15 | RT.EKG_ITS ---
APPROVED REPORT Exam: Resting ECG Reason for Exam: Jaw pain Patient Location: E HR:71 bpm ECG Measurements Heart Rate 71 AXIS WI 136 P 25 QRSd 80 QRS 2 QT 375 T 28 QTc 409 Conclusion Sinus rhythm...normal P axis, V-rate 60- 99 No Occlusion DC
--- NOTE | 2024-08-28 08:21 | W.ED.GENAD ---
Discharge Plan Disposition Patient Disposition: Home Discharge Details Clinical Impression: Jaw pain Primary Care Provider: Pepito Benito ED Provider: Antwon Hernandez Home Meds and New Rx's Prescriptions: Continued Systane Complete 0.6 % drops 1 drp ophthalmic (eye) DAILY PRN multivitamin [Daily Multiple] 1 EACH tablet 1 ea PO DAILY Discharge Instructions Additional Instructions: You are seen in the emergency department for jaw pain. Your blood work showed no sign of a heart attack. Your chest x-ray showed no sign of any abnormalities in your lungs or chest. As we discussed please follow-up with your primary care provider next week. Please return to the emergency department if you develop a headache that worsens if you pass out or if you begin vomiting and do not stop. For your pain please take medications as follows: 1. Take acetaminophen (Tylenol), 1,000 mg (two 500 mg tabs) every 6 hours [2. Take ibuprofen (Advil), 400 mg every 6 hours.] Discharge Data Discharge Date/Time-TO BE ENTERED AT DEPARTURE: 08/28/24 11:23 HPI General Date/Time Provider Initiated Documentation: 08/28/24 08:21. HPI Narrative: MDM This is an overall very well-appearing normothermic and nontachycardic 72-year-old female with generalized jaw ache arm pain concern for the possibility of ACS for which patient will receive troponin testing following her nonischemic ECG. Given the patient's headache I considered whether or not she could have a subarachnoid hemorrhage. She does note that her headache was slightly worse today though was not maximal in onset. Given that she has intermittently had headaches over the past several weeks I did not feel that a noncontrast CT would accurately rule out subarachnoid hemorrhage. We discussed possibility of further not to obtain a CT angiogram of her head and neck. I discussed pros and cons of this test and we specifically discussed risk of incidental findings in terms of small cerebral aneurysms which would require follow-up. Patient reported that she was less concerned about her headache and more concerned about her jaw pain. She lacks risk factors for ACS and has no significant family history as her mom did not have an [place] until she was 83 years old. Given her intermittent dizziness I also obtained a D-dimer to assess for PE though the patient denies shortness of breath significant chest pain and she is neither hypoxic nor tachycardic. Her ABCD 2 score is low and she is neurologically intact so my suspicion for CVA and TIA is exceedingly low so I did not feel that the patient would be a thrombectomy candidate nor a lytic candidate so I did not order a CT scanning of her head. No chiropractic manipulation to suggest increased risk for cervical arterial dissection. She had no diurnal symptoms to suggest intracranial mass so I did not feel that she required an emergent CT scan of her head. She denied any tonic-clonic activity tongue biting or loss of bowel or bladder control so I did not think she was having any seizures so I did not feel she required an EEG. No nuchal rigidity fevers nor neck pain to suggest meningitis and no indication for lumbar puncture. Patient has been nauseous but has had no URI symptoms and no vomiting so I am not suspicious for subdural empyema. Given no URI symptoms and not concern for sinusitis. No ear pain to suggest mastoiditis. No malar rash to face to suggest lupus. 9 AM Comprehensive metabolic panel showing very mild anion gap. Normal bicarbonate. No hyperglycemia?test not consistent with DKA. No SORAIDA. No acute electrolyte abnormalities. CBC with mild thrombocytosis new compared to prior. No anemia. No thrombocytopenia. Undetectable initial troponin however given duration of time since symptoms began will obtain second troponin at the 1 hour marisa. 9:25 AM Patient's nurse noted flipped T waves on monitor for which patient will receive repeat ECG. Repeat ECG reassuring. HEART SCORE Chest pain Diagnostic Protocol: [-History/Physical/Gestalt: Slightly Suspicious (0)] [- EKG: Nonspecific repolarization (+1)] [- AGE: 45-65 (+1)] [- RISK FACTORS: 1 - 2 risk factors (+1)] [-TROPONIN: <= normal limit (0)] - TOTAL SCORE: 3 - Risk Factors: DM, current or recent smoker, HTN, HLD, family hx of CAD, obesity - INTERPRETATION: With a total score of 3 or less, risk of major cardiac event within six weeks 1.7%, likely lower with two negative troponins. [I explained to the patient that the risk of subsequent major cardiac event within 1 month is not 0, however risk predicted to be less than 2%. Patient verbalized understanding, accepts this risk and shared and the decision for discharge with PCP follow-up for further evaluation and management. They understand to return to the ED immediately with any worsening symptoms, new symptoms or other concerns.] Chronic conditions affecting the care of the patient: Hyperlipidemia History obtained from an outside historian: N/A External record review: N/A [Diagnostic interpretations performed by me: Per my independent interpretation chest x-ray shows: Per my independent interpretation EKG shows: Narrow complex normal sinus rhythm at a rate of 71. Left axis deviation no signs of LVH. Intervals within normal limits. T wave flattening in lead III. Unchanged compared to prior dated 3 years ago. ]Medications: N/A Social determinants of health affecting disposition: N/A Management discussed with: [] Treatment/interventions considered: [] Response to therapies provided: [] HPI This is a 59-year-old female with history of hyperlipidemia brought in emergency department via private vehicle in the setting of jaw pain. Patient notes that she has intermittently been having headaches for the past approximately 1 year since she was knocked over by her dog. She saw her primary care provider earlier this week and has been scheduled for an outpatient MRI. This morning patient woke up and her headache was slightly worse compared to normal. She also noted a heaviness in both of her arms and out pain in her throat and jaw. She felt nauseous. She was intermittently dizzy yesterday. She has had no chest pain or any shortness of breath. No vomiting nor abdominal pain. She rarely drinks alcohol denies routine tobacco or illicits. No fevers. No recent URI symptoms. Patient denies history of diabetes and hypertension. She has occasionally had some unsteadiness but not taken any recent falls. Exam General: Well-appearing in no acute distress speaking in complete sentences. Head: Normocephalic, atraumatic. Eye:[Pupils equal, round reactive to light.] Extraocular eye movements intact. No conjunctival injection. No scleral icterus. Ear, nose, mouth, throat: Grossly normal inspection. Normal voice, handling secretions normally. Neck: Trachea midline. No nuchal rigidity. Cardiovascular: Well-perfused distal extremities. Regular rate and rhythm. Respiratory: Nonlabored respiration. Clear lungs bilaterally. Gastrointestinal: Nondistended abdomen. Soft nontender. Musculoskeletal: No edema. Moving all 4 extremities spontaneously. Skin: Normal for age and race, grossly normal temperature and turgor. No acute rash. Neurologic: Cranial nerves II through XII intact grossly. No dysmetria. No dysdiadochokinesia. 5 out of 5 bilateral upper and lower extremity strength. No pronator drift. Psychiatric: Mood and manner are appropriate. Grooming and personal hygiene are appropriate. Related Data Home Medications ?Medication ?Instructions ?Recorded ?Confirmed multivitamin (Daily Multiple 1 ea PO DAILY 06/28/17 08/28/24 tablet) propylene glycol 0.6 % eye drops 1 drp ophthalmic (eye) DAILY PRN 03/29/21 08/28/24 (Systane Complete) Allergies Allergy/AdvReac Type Severity Reaction Status Date / Time cyclobenzaprine AdvReac Mild Dizziness/L Verified 08/28/24 08:32 ightheade General OCTAVIANO: 3 Medical Decision Making Quality:SDOH Health Related Social Needs: No Data to Display PFSH All Active Problems (Updated 08/28/24 @ 10:06 by Antwon Hernandez MD) Jaw pain (Acute) Dizziness (Acute) Headache (Acute) Primary osteoarthritis, right ankle and foot (Acute) Right hip pain (Acute) History of excessive cerumen (Acute) Hallux valgus (acquired), right foot (Acute) Pain in right ankle and joints of right foot (Acute) Ingrowing nail (Acute) Impingement of right shoulder (Acute) Epidermal thickening, unspecified (Acute) Other hammer toe(s) (acquired), right foot (Acute) Ganglion, right ankle and foot (Acute) Bunion of great toe of right foot (Acute) Bunion of great toe of left foot (Acute) Pes planus of both feet (Acute) 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 Heart disease Social History Smoking/Tobacco Use Status: Never Smoking risk assessment performed?: Yes Alcohol Intake: current Alcohol Intake frequency: a few times a month Alcohol type: beer Drug use: Never Substance use type: does not use Household members: spouse Housing: house Number of Children: 1 Communication Needs: Corrective Lenses Pets and animals: Yes Pets and animals: dog(s) Current gender identity: female What is your relationship status?: Panel score (0-1 are the most socially isolated patients): 1 Seatbelt use: always Water heater temp set <120 deg: Yes Working smoke detector in home: Yes Fire extinguisher in home: Yes Carbon monox detector in home: Yes Firearms in home: Yes Firearms unloaded and locked: Yes Do you feel safe at home: Yes Do you feel safe in your relationship?: Yes Victim of physical abuse: No Victim of emotional abuse: No Victim of sexual abuse: No Female Reproductive History Menstrual Menopause type: natural
[2024-08-28 09:14] LABS: Abs Immature Grans 0.01 10^3/uL (0.0-0.06); Absolute Basophil Count 0.04 10^3/uL (0.0-0.2); Absolute Lymphocyte Count 1.29 10^3/uL (1.2-3.4); Absolute Monocyte Count 0.38 10^3/uL (0.1-0.8); Absolute Neutrophil Count 2.94 10^3/uL (1.2-6.7); Basophils % 0.8 %; Eosinophils % 2.1 %; HCT 41.6 % (36.0-46.0); HGB 14.1 g/dL (11.2-15.7); Immature Grans % 0.2 %; Lymphocytes % 27.1 %; MCH 30.7 pg (27.0-33.0); MCHC 33.9 % (32.0-36.0); MCV 90 fL (80-95); MPV 9.9 fL (8.0-11.0); Neutrophils % 61.8 %; Platelet Count 188 10^3/uL (130-400); RDW 12.3 % (11.7-14.6); RDW-SD 40.7 fL; WBC 4.76 10^3/uL (4.4-10.8)
--- NOTE | 2024-08-28 09:15 | RT.EKG_ITS ---
APPROVED REPORT Exam: Resting ECG Reason for Exam: Chest pain Patient Location: E HR:66 bpm ECG Measurements Heart Rate 66 AXIS MO 145 P 30 QRSd 88 QRS 11 QT 401 T 30 QTc 419 Conclusion Sinus rhythm...normal P axis, V-rate 60- 99 No Occlusion [place]
[2024-08-28 09:39] LABS: D-Dimer 291 ng/mlFEU (<500)
[2024-08-28 09:40] LABS: Magnesium 2.2 mg/dL (1.8-2.4); Troponin I < 4 ng/L (<or=51)
--- NOTE | 2024-08-28 09:41 | NUR.NOTE ---
Nursing Note: Noticed new flipped t waves on 3 lead tele, repeat EKG ordered and done.
--- NOTE | 2024-08-28 09:44 | DI.RAD_ITS ---
Exam(s) XR CHEST 2V PA LATERAL EXAM: XR CHEST 2V PA LATERAL CLINICAL HISTORY: Chest pain TECHNIQUE: 2D digital imaging was performed. Two views. COMPARISON: CT CT CHEST PE CTA from 04/18/2021 FINDINGS: HEART: Normal size. Aorta: Not dilated. PULMONARY VASCULATURE: Normal. MEDIASTINUM: Unremarkable. LUNGS: Clear. PLEURAL SPACE: No pleural effusion or pneumothorax. BONE:Unremarkable for age. SOFT TISSUES: Unremarkable. IMPRESSION: No acute abnormality. DATA REPOSITORY: RADIATION DOSE DELIVERED:
[2024-08-28] MEDS: Ketorolac 15 MG/ML VIAL IVP (10:07)
[2024-08-28] MEDS: Acetaminophen 500 MG TAB 1000 MG PO (10:07)
[2024-08-28 10:38] LABS: Troponin I < 4 ng/L (<or=51)
== END 2024-08-28 11:23 | disposition home or self-care (01) ==
PROVIDERS: Emergency Provider Emergency Medicine; PCP Family Medicine
DX: R68.84 Jaw pain (principal); R51.9 Headache, unspecified; E78.5 Hyperlipidemia, unspecified
CPT/HCPCS: 93005; 96374; 99285; 71046; 83735; 84484; 85025; 85379; 93010; 99284; J1885

== ENCOUNTER 2024-08-31 09:47 | Outpatient (CLI) | payer OTHER, SELFPAY | END 2024-08-31 09:48 | disposition home or self-care (01) | PROVIDERS: PCP Family Medicine; Visit Provider Nurse Practitioner Family | DX: R42 Dizziness and giddiness (principal) | CPT/HCPCS: 93246 ==

== ENCOUNTER 2024-09-03 01:41 | Outpatient (CLI) | payer OTHER, SELFPAY ==
[2024-09-03 08:49] LABS: Hemoglobin A1C 5.3 % (<5.7)
[2024-09-03 09:14] LABS: ALT 34 U/L (14-59); AST 16 U/L (15-37); Albumin 4.2 g/dL (3.4-5.0); Alkaline Phosphatase 81 U/L (46-116); Anion Gap 7.4 mmol/L (3-11); BUN 20 mg/dL (7-18); Bilirubin, Total 0.7 mg/dL (0.2-1.0); CO2 28.6 mmol/L (21.0-32.0); CREATININE 0.8 mg/dL (0.55-1.02); Calcium 9.2 mg/dL (8.5-10.1); Calculated LDL 142 mg/dL (<100); Chloride 107 mmol/L (98-107); Cholesterol 212 mg/dL (<200); Estimated GFR 84.82 (mL/min/1.73m2); Glucose 107 mg/dL (74-106); HDL Cholesterol 51 mg/dL (>or=50); Potassium 3.9 mmol/L (3.5-5.1); Sodium 143 mmol/L (136-145); Triglyceride 95 mg/dL (<150)
== END 2024-09-03 01:42 | disposition home or self-care (01) ==
LOC: LBO 01:42
PROVIDERS: PCP Family Medicine; Visit Provider Nurse Practitioner Family
DX: E78.00 Pure hypercholesterolemia, unspecified (principal); R51.9 Headache, unspecified
CPT/HCPCS: 36415; 80053; 80061; 83036

== ENCOUNTER 2024-09-22 01:07 | Outpatient (CLI) | payer OTHER, SELFPAY ==
--- NOTE | 2024-09-22 08:30 | DI.MRI_ITS ---
Exam(s) MR BRAIN WO EXAM: MR BRAIN WO CLINICAL HISTORY: new FLOYD w/dizziness occured after concussion 01/20,r51.9 TECHNIQUE: Multiplanar multisequence MRI of the brain was performed. COMPARISON: No exams were available for comparison FINDINGS: CEREBRAL PARENCHYMA: There is no evidence of intracranial hemorrhage, mass effect, or shift of midline structures. There are no extra-axial fluid collections. Ventricles are not enlarged or shifted. There is no significant focal signal abnormality in the cerebellar hemispheres nor within the david, m idbrain, and thalami. There is no abnormal signal abnormality in the periventricular white matter. There is no significant focal signal abnormality evident on diffusion imaging to suggest acute ischem ic event. SWI reveals no evidence of microhemorrhages in the brain. PITUITARY GLAND: No mass nor parasellar abnormality. No obvious abnormality in the cavernous sinuses. FLOW VOIDS: The expected flow void are noted. No evidence of obvious aneurysm nor obvious vascular ma lformation. PARANASAL SINUSES: There is a small post inflammatory retention cyst in the floor of the right maxill lilian sinus. No associated fluid level. Other sinuses are clear as are the mastoid air cells. ORBITS: No obvious findings. IMPRESSION: No significant intracranial findings on this noninfused MRI scan of the brain. DATA REPOSITORY:
== END 2024-09-22 01:27 ==
LOC: DI 01:07
PROVIDERS: PCP Family Medicine; Visit Provider Nurse Practitioner Family
DX: R51.9 Headache, unspecified (principal)
CPT/HCPCS: 70551

== ENCOUNTER 2024-09-22 07:13 | Outpatient (CLI) | payer OTHER, SELFPAY ==
--- NOTE | 2024-09-22 08:29 | W.CARDEVENT ---
Date of service: 09/22/24 Time of Service: 08:29 Cardiac Event Recorder Referring Provider:: Fay Kemp Indications:: Palpitations Cardiac Event Note: This is a cardiac event recorder. Patient was monitored for 10 days and 23 hours Rhythm throughout was sinus with an average heart rate of 80. Minimum was 47, maximum 141 There were very rare isolated atrial and ventricular ectopic beats There was no atrial fibrillation, no high-grade AV block, no pauses greater than 3 seconds. No symptoms were reported
== END 2024-09-22 07:14 | disposition home or self-care (01) ==
LOC: CARDOPNVT 07:13
PROVIDERS: PCP Family Medicine; Visit Provider Internal Medicine Cardiovascular Disease
DX: R00.2 Palpitations (principal)
CPT/HCPCS: 93248

== ENCOUNTER 2024-09-30 00:51 | Outpatient (CLI) | payer OTHER, SELFPAY ==
--- NOTE | 2024-09-30 12:15 | DI.MAMMO_ITS ---
Exam(s) MAMMO SCREENING EXAM: MAMMO SCREENING CLINICAL HISTORY: screening TECHNIQUE: Bilateral full field digital CC and MLO mammographic images were obtained with 3D tomosyn thesis and utilizing computer aided detection (CAD). COMPARISON: Available for comparison. FINDINGS: Masses/Architectural Distortion: No suspicious masses or areas of architectural distortion are presen t. Microcalcifications: No suspicious pleomorphic-type are seen. Skin Thickening/Nipple Retraction: None. IMPRESSION: 1. No significant interval change with no specific features of malignancy noted. 2. Unless there is more urgent need, screening mammography is recommended, as per [employer] guidelines. BI-RADS Category 1 - Negative Breast Density - Category C - The breast are heterogeneously dense, which may obscure small masses. Breast density Category C or D implies that the patient has dense breast tissue. Dense breast tissue can make it harder to find cancer on a mammogram. Dense breast tissue is also associated with an incr eased risk of breast cancer. This information about the result of the mammogram report was provided to the patient to raise their awareness. Use this report when you speak with the patient about their risks for breast cancer, which includes their family history. At that time, you may recommend additional screening tests (Ultrasoun d or MRI) as these tests may add significant information. A negative radiographic report should not delay biopsy if a dominant or clinically suspicious mass is present. Up to ten percent of cancers are not identified on mammography. A negative report may reinforce clinical impression. Adenosis and dense breasts may obscure an underlying neoplasm. False positive reports average 6 to 10%. Patient will receive a letter notifying them of these results.
== END 2024-09-30 01:11 ==
LOC: DI 00:52
PROVIDERS: PCP Family Medicine; Visit Provider Nurse Practitioner Women's Health
DX: Z12.31 Encounter for screening mammogram for malignant neoplasm of breast (principal); R92.333 Mammographic heterogeneous density, bilateral breasts
CPT/HCPCS: 77063; 77067

== ENCOUNTER 2024-10-09 09:02 | Day surgery (SDC) | payer OTHER, SELFPAY ==
--- NOTE | 2024-10-08 20:36 | PDOC.DSDIS_ITS ---
Date of service: 10/09/24 Discharge Plan Disposition Patient Disposition: Home Condition: Good Discharge Details Reason For Visit: screening colonoscopy Attending Provider: Reinier Lopez Primary Care Provider: Pepito Benito Home Meds and New Rx's Prescriptions: Continued Systane Complete 0.6 % drops 1 drp ophthalmic (eye) DAILY PRN magnesium oxide 200 mg magnesium tablet,chewable PO .qod multivitamin [Daily Multiple] 1 EACH tablet 1 ea PO DAILY Discontinued bisacodyl [Dulcolax (bisacodyl)] 5 mg tablet,delayed release (DR/EC) 5 mg PO ONCE Qty: 4 0RF Rx Instructions: Take per colonoscopy instructions provided by ordering providers office polyethylene glycol 3350 17 gram/dose powder 17 g PO ONCE Qty: 238 0RF Rx Instructions: Take per colonoscopy instructions provided by ordering providers office Discharge Instructions Instructions: Colon polyps Additional Instructions: Rhonda, it was a pleasure meeting you today, and I hope you are comfortable through the colonoscopy. Everything went very smoothly. I did find, and removed 1 tiny bit of tissue today, that might represent a polyp. I will send t his off to the pathologist for the review. If it does pillowcase turner to be a true polyp, then we will use that information to help determine the timing of your next colonoscopy. If you need anything, or have any questions at all, please do not hesitate to ask, otherwise my office will be in touch as soon as we have the results. 1. If tolerated, consume a soft, low fiber diet for 1-2 days. 2[address] Do not drive, drink alcohol, operate machinery, make critical decisions, or do activities that require coordination or balance for 24 hours. 3. Because air was put into your colon during the procedure, expelling air from your rectum (passing gas or farting) is normal. 4. You may not have a bowel movement for 1-3 days because of the colonoscopy prep. This is normal. 5. Go directly to the emergency room if you notice any of the following: Develop chills (warm to touch), or if you have a thermometer and your temperature is above 101 Difficulty breathing or difficultly swallowing Persistent vomiting Severe abdominal pain, other than gas cramps Severe chest pain Black, tarry stools Any bleeding ? exceeding one tablespoon 6. Call your physician if the site where your intravenous was started becomes red, swollen, painful, and warm to touch. 7. Your physician has reviewed your pre-procedure medications. Please continue to take those medications as previously ordered. You will be given specific information/education regarding any changes to your medications before leaving. Stand Alone Forms: Anesthesia Discharge InstIngrid Goss (DSU) Activity:: Activity as Tolerated Diet:: As Tolerated Discharge Orders Discharge Orders: Discharge Order (Routine); Ordered 10/08/24 Ordered By: Reinier Lopez DS: Diagnosis Discharge Diagnosis (1) Encounter for screening colonoscopy: Status: Acute Asessment and Plan: Follow-up on polypectomy results
--- NOTE | 2024-10-08 20:38 | COLE_ITS ---
Date of service: 10/09/24 Time of Service: 10:54 Colonoscopy Report Date of procedure: 10/09/24 Pre-op diagnosis general: screening colonoscopy Post-op diagnosis procedure note: other (Colon polyp) Procedure: colonoscopy with polypectomy Surgeon: Reinier Lopez Anesthesia Type: General:No Airway Estimated blood loss (mL): 5 Pathology: other (0.25 cm flat polyp at 40 cm) Complications: None Disposition: same day Indications: Rhonda is a 59 year old woman who needs a screening colonoscopy Prep: Miralax/Dulcolax Procedure Start Time: 10:26 Procedure End Time: 10:41 Retraction Time: 7 Findings: 0.25 cm flat polyp at 40 cm Procedure Description: After the induction of anesthesia, and with the patient in left lateral decubitus position, I began by performing an external anorectal exam.? Perineum and skin were normal, as was the anal verge.? This appeared normal.? Next, I performed a digital rectal exam.? There are internal hemorrhoids.? Next, I advanced a colonoscope into the rectal vault.? I performed retroflexion.? There are internal hemorrhoids.? Using insufflation, I then advanced the colonoscope beyond the rectal folds and into the sigmoid colon before advancing towards the cecum.? The quality of the prep was excellent.? The scope was noted to be in the cecum by identification of the ileocecal valve and appendiceal orifice.? I then began withdrawing the colonoscope using repeated irrigation as necessary for ful l evaluation of the colonic mucosa. Around 40 cm from the anal verge was a 0.25 cm flat polyp. This was removed with cold forceps with minimal bleeding. ?Once the scope was withdrawn to the level of the rectum, great care was taken to examine portions of the rectal folds.? Finally, the scope was withdrawn and the patient was brought to the same-day surgery recovery unit as the anesthetic wore off. ?The findings and instructions were shared with the patient prior to discharge. [place] Bowel Prep [place] Bowel Prep Right Colon: 3 Left Colon: 3 Transverse Colon: 3 Total Score: 9
[2024-10-09 09:32] VITALS: BP 122/83; PULSE 83; RESP 18; TEMP 36.3; O2SAT 96
[2024-10-09] MEDS: Lactated Ringers 1,000 ML 80 ML IV (09:50)
--- NOTE | 2024-10-09 10:03 | ANES.PREOP_ITS ---
General Info Date of Service Date Performed: 10/09/24 Height: 5 ft 6 in Weight: 82.5 kg Body Mass Index (BMI): 29.3 Surgical Procedure: Operation Date: 10/09/24 10:35 Proposed Procedure Side Surgeon leonel Lopez MD Meds Allergies and Home Medications Allergies Allergy/AdvReac Type Severity Reaction Status Date / Time cyclobenzaprine AdvReac Mild Dizziness/L Verified 10/09/24 09:31 ightheade Home Medication ?Medication ?Instructions ?Recorded multivitamin (Daily Multiple 1 ea PO DAILY 06/28/17 tablet) propylene glycol 0.6 % eye drops 1 drp ophthalmic (eye ) DAILY PRN 03/29/21 (Systane Complete) magnesium oxide mg PO .qod 09/25/24 Current Visit Medications: Current Medications Generic Name Dose Route Start Last Admin Trade Name Freq PRN Reason Stop Dose Admin Ringer's Solution 1,000 mls @ 80 mls/hr 10/09/24 06:00 10/09/24 09:50 IV 10/09/24 23:59 80 mls/hr INFUSION IKER Administration IV Miscellaneous Supplies 1 each 10/09/24 06:00 Iv Access IV 10/09/24 23:59 DIRECTED IKER Ondansetron HCl 4 mg 10/08/24 20:39 Ondansetron 4 Mg/2 Ml Vial IVP 11/07/24 20:38 Q4H PRN PRN Nausea / Vomiting Sodium Chloride 0 ml 10/09/24 06:00 Normal Saline Flush 10 Ml Syr IV 10/09/24 23:59 PRN PRN Sodium Chloride 0 ml 10/09/24 06:00 Normal Saline 10 Ml Vial IJ 10/09/24 23:59 DIRECTED PRN Sterile Water 0 ml 10/09/24 06:00 Water,Injection,Sterile 10 Ml Vial IJ 10/09/24 23:59 DIRECTED PRN PFSH Active Problems Active Problems: Problem Status Onset Code Encounter for screening colonoscopy Acute Z12.11 Dizziness Acute R42 Primary osteoarthritis, right ankle and foot Acute M19.071 Right hip pain Acute M25.551 History of excessive cerumen Acute Z78.9 Hallux valgus (acquired), right foot Acute M20.11 Pain in right ankle and joints of right foot Acute M25.571 Ingrowing nail Acute L60.0 Cellulitis of right toe Resolved L03.031 Impingement of right shoulder Acute M25.811 Epidermal thickening, unspecified Acute L85.9 Other hammer toe(s) (acquired), right foot Acute M20.41 Ganglion, right ankle and foot Acute M67.471 Bunion of great toe of right foot Acute M21.611 Bunion of great toe of left foot Acute M21.612 Hyperkeratosis Resolved L85.9 Pes planus of both feet Acute M21.41, M21.42 History of pneumonia Resolved ~03/2021 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 Eye Exam, uses systane Syncope COVID-19 (~03/2021) Heart burn Loose stools Retinoschisis 05/26/20 [facility] [place] [facility] Metatarsalgia of both feet Postnasal drip Laryngopharyngeal reflux (LPR) Devon Norton PA-C Tonsillith Surgical History Surgical History section Dilation and curettage (12/04/17) Tobacco Smoking/Tobacco Use Status: Never Passive smoking exposure: No Alcohol Alcohol Intake: current Alcohol intake frequency: a few times a month Alcohol type: beer Substance Use Substance use: Never Substance use type: does not use Vital Signs and Lab Results Vital Signs Most Recent Vital Signs in EMR: Most Recent Vital Signs Temp Pulse Resp BP Pulse Ox 36.3 C L 83 18 122/83 96 10/09/24 09:32 10/09/24 09:32 10/09/24 09:32 10/09/24 09:32 10/09/24 09:32 Imaging and Studies Imaging and Studies Study information below may be from another EMR and interpreted by another provider. Please see original notes in EMR for more complete details. EKG Summary: 08/28/24: Exam: Resting ECG Reason for Exam: Chest pain Patient Location: E HR:66 bpm ECG Measurements Heart Rate 66 AXIS TX 145 P 30 QRSd 88 QRS 11 QT 401 T30 QTc 419 Conclusion Sinus rhythm...normal P axis, V-rate 60- 99 No Occlusion KS I have reviewed and I agree with the emergency room physician's ECG interpretation. Anesthesia Assessment and Plan Anesthesia History Personal History: No History of Anesthesia Complications Family History: No Family History of Anesthesia Complications Exercise Tolerance Exercise Tolerance: Metabolic Equivalents>4 Pertinent Negatives Pertinent Negatives: No Symptoms of GERD, No Major Cardiovascular Symptoms or Complaints and No Major Pulmonary Symptoms or Complaints Cardiac & Pulmonary Exam Cardiac Exam: Normal S1/S2 Heart Sounds Pulmonary Exam: Clear Bilateral Breath Sounds Implantable Cardiac Device Does patient have a Pacemaker or an ICD?: No Airway Exam Known Difficult Airway: No Mallampati Class: 2 Mouth Opening: Normal (> 3cm) Thyromental Distance: Greater than 3 cm Neck Range of Motion: Full ROM Neck Circumference: Normal Teeth Condition: Normal Dentition ASA Classification ASA Score: ASA 2 Emergency Case?: No NPO Status NPO Status: NPO Clears >2 hours, Solids >8 hours Anesthesia Plan Resuscitation Status: Full Code Anesthesia Technique: General Anesthesia Airway Planned: Natural Airway Monitors Used: Standard Monitors Preoperative Comments:: Recent ER visit negative for ACS, no residual/recurrent symptoms.
[2024-10-09 10:13] VITALS: BMI 29.3
--- NOTE | 2024-10-09 10:38 | BOWEL_PTH ---
PATIENT: Lyric Yao LOC: [facility] U#:[id number] AGE/SX: 59/F ROOM: RE10/09/[address]: Reinier Lopez MD : 1965 BED: DIS: 10/09/2024 SPEC #: [id number] RECD: 10/09/24 12:54 STATUS: JENNIFER REQ #: [id number] RILEY: 10/09/24 10:[address]: Reinier Lopez DEPT: Surgical Specimen RECD BY: Poonam Rm ENTERED: 10/09/24 12:55 SP TYPE: Bowel OTHR DR: Pepito Benito DO Tissues: 1 - BIOPSY BOWEL Procedures: GROSS AND MICRO LEVEL 4 Comments: [id number]
[2024-10-09 10:47] VITALS: BP 118/78; PULSE 86; RESP 16; TEMP 36.3; O2SAT 97
[2024-10-09 11:17] VITALS: BP 117/77; PULSE 72; RESP 16; TEMP 36.4; O2SAT 99
== END 2024-10-09 11:21 | disposition home or self-care (01) ==
LOC: SUR 09:02
PROVIDERS: PCP Family Medicine; Visit Provider Surgery
PROC: 0DJD8ZZ Inspection of Lower Intestinal Tract, Via Natural or Artificial Opening Endoscopic (ICD-10-PCS; CPT 45378; principal; 2024-10-09 10:30)
DX: Z12.11 Encounter for screening for malignant neoplasm of colon (principal); D37.4 Neoplasm of uncertain behavior of colon
CPT/HCPCS: 45380; 88305; J2003; J2704